=== PATIENT | male | born 1950 | race Caucasian/White ===

== ENCOUNTER 2017-11-21 17:18 | Emergency (ER) | payer MEDICARE, OTHER ==
[~2017-11-21] VITALS: Ht 185.4 cm; Wt 107.0 kg
--- OUTSIDE RECORDS SUMMARY | 2017-11-21 17:21 | XMS REPORT | Clinical Summary ---
Author Author [facility] Address Unknown Phone Unavailable Care Team Providers Care Stores Clerk Name Role Phone David Campos DO PCP Allergies No Known Allergies Current Medications Prescription Sig. Disp. Refills Start End Date Status Date clonIDINE (CATAPRES-TTS) Place 1 patch on the skin Active 0.1 mg/24 hr once a week. simvastatin (ZOCOR) 10 MG Take 10 mg by mouth Active tablet nightly. hydroCHLOROthiazide Take 12.5 mg by mouth Active (HYDRODIURIL) 12.5 MG daily. tablet lisinopril-hydrochlorothi TK 1 T PO D 3 08/12/19 Active azide 17 (PRINZIDE,ZESTORETIC) 20-25 mg per tablet nitroglycerin (NITROSTAT) PLACE [facility] UTD 2 07/27/19 Active 0.3 MG SL tablet 17 clonIDINE (CATAPRES) 0.1 TK 1 T PO BID 3 08/12/19 Active MG tablet 17 amLODIPine (NORVASC) 10 TK 1 T PO ONCE D 3 08/12/19 Active mg tablet 17 Hospital, Clinic, or Ordered Dose Route Frequency Start End Date Status Other Facility Date Administered Medication betamethasone acetate & 6 mg IAtc once 10/28/19 Active sodium phosphate 17 (CELESTONE) injection 6 mgIndications: Trigger middle finger of right hand Active Problems No known active problems Family History Medical History Relation Name Comments Cancer Father Dementia Mother Relation Name Status Comments Father Mother Social History Tobacco Use Types Packs/Day Years Used Date Current Some Day Smoker Smokeless Tobacco: Never Used Alcohol Use Drinks/Week oz/Week Comments Yes Sex Assigned at Date Recorded Not on file Last Filed Vital Signs Not on file Plan of Treatment Health Maintenance Due Date Last Done Comments COLON CANCER SCREENING 1998 SHINGRIX VACCINE (#1) 1998 ZOSTER VACCINE 2008 PNEUMOCOCCAL 2013 POLYSACCHARIDE VACCINE AGE 65 AND OVER PNEUMOCOCCAL-13 2013 INFLUENZA VACCINE 09/05/2017 Results Not on fileafter 11/20/2016 Insurance Payer Benefit Subscriber ID Type Phone Address Plan / Group HU[employer] MEDICARE HUMANA xxxxxxxxx PPO MEDICARE PPO/PFFS/E [facility] [place] [address]
[2017-11-21 18:09] LABS: BASOPHILS # (AUTO) 0.1 (0.0-0.1); BASOPHILS % 0.5 % (0.0-1.0); EOSINOPHILS # (AUTO) 0.3 (0.0-0.4); EOSINOPHILS % 2.6 % (0.0-6.0); HEMATOCRIT 41.7 % (38.2-49.6); HEMOGLOBIN 14.7 g/dL (14.0-18.0); MEAN CORPUSCULAR HEMOGLOBIN 31.6 pg (28-32); MEAN CORPUSCULAR HGB CONC 35.3 g/dL (31-35); MEAN CORPUSCULAR VOLUME 89.7 fL (81-99); MONOCYTES # (AUTO) 0.7 (0.2-0.8); MONOCYTES % 7.2 % (4.4-11.3); NEUTROPHILS # (AUTO) 6.4 (2.1-6.9); NEUTROPHILS % 67.7 % (38.7-80.0); PLATELET COUNT 231 x10e3/uL (140-360); RED BLOOD COUNT 4.65 x10e6/uL (4.3-5.7); RED CELL DISTRIBUTION WIDTH 13.1 % (11.7-14.4)
[2017-11-21 18:24] LABS: INR 0.95; PROTHROMBIN TIME 13.6 seconds (11.9-14.5)
[2017-11-21 18:25] LABS: PARTIAL THROMBOPLASTIN TIME 32.8 seconds (23.8-35.5)
[2017-11-21 18:37] LABS: ALANINE AMINOTRANSFERASE 48 IU/L (0-55); ALBUMIN 4.4 g/dL (3.5-5.0); ALBUMIN/GLOBULIN RATIO 1.4 (0.8-2.0); ALKALINE PHOSPHATASE 73 IU/L (40-150); AMYLASE 38 U/L (25-125); BLOOD UREA NITROGEN 26 mg/dL (7-26); BUN/CREATININE RATIO 19 (6-25); CALCIUM 10.2 mg/dL (8.4-10.2); CARBON DIOXIDE 25 mmol/L (22-29); CHLORIDE 94 mmol/L (98-107); CREATINE KINASE 100 IU/L (30-200); CREATININE, SERUM 1.39 mg/dL (0.72-1.25); EST GLOMERULAR FILTRATION RATE 51 ML/MIN (60-); LIPASE 42 U/L (8-78); MAGNESIUM 2.2 MG/DL (1.3-2.1); SODIUM 132 mmol/L (136-145)
[2017-11-21 18:46] LABS: GLUCOSE 441 mg/dL (74-118)
[2017-11-21] MEDS ORDERED: SODIUM CHLORIDE 0.9% 1000ML 1,000 ML IV SCH (19:00)
[2017-11-21] MEDS ORDERED: INSULIN REGULAR, HUMAN 100 UNIT/1 ML 3ML VIAL IV ONE (19:00)
[2017-11-21 19:05] LABS: CLARITY,URINE CLEAR (CLEAR); COLOR,URINE YELLOW (YELLOW)
[2017-11-21 19:06] LABS: BILIRUBIN,URINE NEGATIVE (NEGATIVE); KETONES,URINE NEGATIVE (NEGATIVE); LEUKOCYTE ESTERASE ,URINE NEGATIVE (NEGATIVE); NITRITE,URINE NEGATIVE (NEGATIVE); PROTEIN,URINE DIPSTICK NEGATIVE (NEGATIVE); URINE UROBILINOGEN 0.2 mg/dL (0.2 - 1)
[2017-11-21 19:14] LABS: BACTERIA,URINE RARE /HPF; EPITHELIAL CELLS,URINE RARE /LPF; WBC,URINE (MAN) 0-5 /HPF (0-5)
--- NOTE | 2017-11-21 20:05 | Diagnostic Imaging Report ---
EXAMINATION: CHEST SINGLE (PORTABLE) INDICATION: Weakness ^weakness ^[id number] ^[id number] COMPARISON: None FINDINGS: AP view TUBES and LINES: None. LUNGS: Lungs are moderately inflated. Lungs are clear. There is no evidence of pneumonia or pulmonary edema. PLEURA: No pleural effusion or pneumothorax. HEART AND MEDIASTINUM: The cardiomediastinal silhouette is unremarkable. BONES AND SOFT TISSUES: No acute osseous lesion. Soft tissues are unremarkable. UPPER ABDOMEN: No free air under the diaphragm. IMPRESSION: No acute thoracic abnormality. Signed by: DR. Terell Hampton MD on 11/21/2017 8:02 PM
[2017-11-21] MEDS ORDERED: ZOFRAN4 MG SL (21:00)
[2017-11-21 21:13] VITALS: BP 126/74
== END 2017-11-21 21:35 | disposition home or self-care (01) ==
LOC: ER 17:18
DX: E11.65 Type 2 diabetes mellitus with hyperglycemia (principal); E86.0 Dehydration; K52.9 Noninfective gastroenteritis and colitis, unspecified; I10 Essential (primary) hypertension; E78.5 Hyperlipidemia, unspecified
CPT/HCPCS: 36415; 71045; 80053; 81001; 82150; 82550; 82553; 82948; 83690; 83735; 84484; 85025; 85610; 85730; 87086; 93005; 99284; J7030

== ENCOUNTER → 2021-01-04 | Day surgery (SDC) | payer MEDICARE, OTHER ==
[~2021-01-04] MED LIST: CLONIDINE HCL0.1 MG PO; GLIPIZIDE5 MG PO; JARDIANCE10 MG PO; LISINOPRIL-HCT1 EAC1 PO; OR PHACO EYE KIT ONE; PREOP PHACO EYE KIT ONE; SIMVASTATIN10 MG PO; ZOFRAN4 MG SL
[2021-01-04 16:35] VITALS: BP 150/74
== END | disposition home or self-care (01) ==
LOC: OR 12:44
PROVIDERS: ATTEND Ophthalmology
DX: H25.11 Age-related nuclear cataract, right eye (principal); I10 Essential (primary) hypertension; E11.9 Type 2 diabetes mellitus without complications; M06.9 Rheumatoid arthritis, unspecified; M19.90 Unspecified osteoarthritis, unspecified site; E78.5 Hyperlipidemia, unspecified; Z01.812 Encounter for preprocedural laboratory examination; Z20.822 Contact with and (suspected) exposure to COVID-19; Z79.84 Long term (current) use of oral hypoglycemic drugs; Z79.899 Other long term (current) drug therapy
CPT/HCPCS: 36415; 66984; 82948; U0002; V2788

== ENCOUNTER → 2021-02-02 | Day surgery (SDC) | payer MEDICARE ==
[2021-02-01 15:02] LABS: BASOPHILS # (AUTO) 0.1 (0.0-0.1); BASOPHILS % 0.5 % (0.0-1.0); EOSINOPHILS # (AUTO) 0.3 (0.0-0.4); EOSINOPHILS % 3.5 % (0.0-6.0); HEMATOCRIT 44.4 % (38.2-49.6); HEMOGLOBIN 14.9 g/dL (14.0-18.0); LYMPHOCYTES # (AUTO) 2.1 (1.0-3.2); LYMPHOCYTES % 21.2 % (18.0-39.1); MEAN CORPUSCULAR HEMOGLOBIN 30.8 pg (28-32); MEAN CORPUSCULAR HGB CONC 33.6 g/dL (31-35); MEAN CORPUSCULAR VOLUME 91.7 fL (81-99); MONOCYTES # (AUTO) 0.7 (0.2-0.8); NEUTROPHILS # (AUTO) 6.5 (2.1-6.9); NEUTROPHILS % 66.6 % (38.7-80.0); PLATELET COUNT 206 x10e3/uL (140-360); RED BLOOD COUNT 4.84 x10e6/uL (4.3-5.7); RED CELL DISTRIBUTION WIDTH 13.6 % (11.7-14.4)
[~2021-02-02] MED LIST changes: +COQ-1030 MG PO; +FENTANYL CITRATE/PF 100MCG/2 ML INJ ONE; +MIDAZOLAM HCL 2 MG/2 ML VIAL ONE
[2021-02-02 13:20] VITALS: BP 138/71
== END | disposition home or self-care (01) ==
LOC: OR 10:35
PROVIDERS: ATTEND Ophthalmology
DX: H25.12 Age-related nuclear cataract, left eye (principal); I10 Essential (primary) hypertension; E11.9 Type 2 diabetes mellitus without complications; Z01.812 Encounter for preprocedural laboratory examination; Z20.822 Contact with and (suspected) exposure to COVID-19; Z79.84 Long term (current) use of oral hypoglycemic drugs; Z79.899 Other long term (current) drug therapy
CPT/HCPCS: 36415 ×2; 66984; 82948; 85025; J2250; J3010; U0002